=== PATIENT | male | born 1970 | race Caucasian/White ===

== ENCOUNTER 2018-05-09 19:21 | Emergency (ER) | payer OTHER ==
[2018-05-09 19:41] VITALS: BP 150/84
[2018-05-09] MEDS ORDERED: TDAP ADULT 0.5 ML INJ (BOOSTRIX) IM ONE (19:59)
--- NOTE | 2018-05-09 20:01 | EDPHY ---
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 The incident occurred shortly prior to arrival with moderate pain described as sharp in nature and mild bleeding that slowed with a a bandage applied prior to arrival. He denies any other associated injuries or complaints. ROS: Neuro: No numbness or tingling the affected thumb Musculoskeletal: No bony pain in the affected thumb 5 point review of symptoms is performed and otherwise negative with exception of pertinent positives and negatives listed in HPI and ROS Past Medical/Surgical History: Patient is uncertain of last tetanus but believes was more than 5 years ago Smoking Status: Heavy smoker Physical Exam: Physical Exam Vital signs are normal. General: No acute distress Cardiac: Brisk capillary refill is intact throughout. Skin: No rash or pallor. Extremities: Atraumatic normal except for left thumb Left thumb: Patient has a 8 mm full-thickness laceration to the plantar aspect of his left thumb. Subcutaneous tissues evident but no deeper structures are injured. There is mild bleeding. No foreign bodies are evident on direct examination Neuro: Alert and oriented with no sensorimotor deficits to the affected thumb. Constitutional: Initial Vital Signs Temperature (C) 37.0 C 05/09/18 19:36 Heart Rate 83 05/09/18 19:36 Respiratory Rate 16 05/09/18 19:36 Blood Pressure 150/84 H 05/09/18 19:36 O2 Sat (%) 94 05/09/18 19:36 O2 Delivery Mode Room Air Allergies/Adverse Reactions: Penicillins Allergy (Intermediate, Verified 05/09/18 19:40) Vomiting Home Medications: Medication Instructions Recorded Nadolol 05/09/18 MDM/Departure - MDM Procedures: Digital block: After verbal consent, using a 50 50 mix of 0.5% Marcaine 2% plain lidocaine, 27 gauge needle, chlorhexidine scrub under sterile conditions- 3 injections were administered to the base of the affected finger, 8 mL with good effect. Patient tolerated this well. There were no complications. The wound is 8 mm in length described physical exam. The wound was copiously irrigated with saline. The wound was explored for foreign bodies and none were found. The wound was prepped and draped in the normal sterile fashion. The edges were reapproximated using 3 running sutures with 4 0 Prolene with good hemostasis and cosmesis. The patient tolerated the procedure well. There were no complications. Medications Given: Discontinued Medications Diphtheria/Tetanus/Acell Pertussis (Boostrix) 0.5 ml IM .ONCE ONE Stop: 05/09/18 20:00 Last Admin: 05/09/18 20:11 Dose: 0.5 ml ED Course/Re-evaluation: Patient is given a tetanus immunization A bandage was placed by our tech post suturing. We counseled him regarding wound care. Discussion: Uncomplicated thumb laceration without neurovascular compromise or other red flag findings. - Depart Disposition: Home, Routine, Self-Care Clinical Impression: Thumb laceration Qualifiers: Encounter type: initial encounter Damage to nail status: without damage Foreign body presence: without foreign body Laterality: left Qualified Code(s): S61.012A - Laceration without foreign body of left thumb without damage to nail , initial encounter Condition: Good Instructions: Finger Laceration (ED) Additional Instructions: Diagnosis: Thumb laceration Plan: Keep the wound clean for the next 2 days and dry. After the next 2 days then removed the dressing, clean it daily with warm soapy water and cover while here at work. Leave uncovered while not work to let some air get to the wound. Ibuprofen Tylenol for pain control as needed Return for suture removal in 10-12 days Return sooner if he develops redness, discharge or other concerns for infection. Stand Alone Forms: Work Excuse Referrals: Supriya Figueroa MD [Primary Care Provider] - As per Instructions
== END 2018-05-09 20:13 | disposition home or self-care (01) ==
LOC: CED 19:21
PROC: 0HQGXZZ Repair Left Hand Skin, External Approach (ICD-10-PCS; principal; 2018-05-09)
DX: S61.012A Laceration without foreign body of left thumb without damage to nail, initial encounter (principal); F17.200 Nicotine dependence, unspecified, uncomplicated; Z23 Encounter for immunization; W29.8XXA Contact with other powered hand tools and household machinery, initial encounter; Y92.009 Unspecified place in unspecified non-institutional (private) residence as the place of occurrence of the external cause; Y93.9 Activity, unspecified; Y99.9 Unspecified external cause status